=== PATIENT | male | born 1970 | race Caucasian/White ===

== ENCOUNTER 2016-08-07 19:21 | Emergency (ER) | payer SELFPAY ==
--- NOTE | ~2016-08-07 | CR63 ---
[facility] A Service of [facility] RADIOLOGY TEXT RESULTS PATIENT: PRIMO PEÑA III LOCATION: [place] : 71 UNIT #: [id number] AGE: [address]: JIN BECKFORD SEX: M ORDER DR: [id number] [facility] [address] [place], [place] [address] [id number] E MR#: [id number] #: [id number] NAME: PRIMO PEÑA III : 1970 SEX: M STUDY DATE/TIME: 08/07/2016 20:08 UNIT: [facility] ROOM: STUDY DESCRIPTION: CR Chest 2 View Attending Physician: Jin Beckford Aprn Referring Physician: Primary Care Physician No Ordering Physician: Jin Beckford Aprn Primary Care Physician: No Primary Care Physician MEDICAL IMAGING REPORT This report is preliminary unless electronic signature is present EXAM Two view chest x-ray, 08/07/2016. HISTORY A 46-year-old male in the ED with right-side chest pain after injury. Fell off a ladder today. TECHNIQUE PA and lateral upright chest series. FINDINGS The lungs are expanded and clear. No visible pneumothorax, pulmonary infiltrate or pleural effusion. Cardiomediastinal silhouette is normal. Nondisplaced fractures through the lateral portions of the right ninth and tenth ribs. No additional rib abnormality is visible on these chest images. IMPRESSION 1. Acute nondisplaced fractures through the lateral portions of the right ninth and tenth ribs. 2. No pneumothorax, pulmonary infiltrate or pleural effusion. Dictated by... Lico Oviedo M.D. THIS IS AN ELECTRONICALLY VERIFIED REPORT Lico Oviedo M.D. at 08/10/2016 5:59 AM DIYA/rashid TD: 08/08/2016 15:50 [facility] A Service of [facility] RADIOLOGY TEXT RESULTS PATIENT: PRIMO PEÑA III LOCATION: [place] : 71 UNIT #: [id number] AGE: [address]: JIN BECKFORD SEX: M ORDER DR: JOB #: [id number] MEDICAL IMAGING REPORT Page 1 of 1 COPY
[~2016-08-07 19:21] MED LIST: AUGMENTIN PO; LOPRESSOR PO; VICODIN 5/1 TAB 5/50 PO
[2016-08-07 20:08] LABS: URINE SOURCE CLEAN CATCH
[2016-08-07 20:26] LABS: URINE APPEARANCE CLEAR; URINE BILIRUBIN NEG (NEG); URINE BLOOD NEG (NEG); URINE COLOR YELLOW; URINE GLUCOSE NEG (NEG); URINE KETONE NEG (NEG); URINE LEUKOCYTE ESTERASE NEG (NEG); URINE NITRATE NEG (NEG); URINE PROTEIN NEG (NEG); URINE SPECIFIC GRAVITY 1.019 (1.003-1.035)
[2016-08-07 20:35] LABS: CULTURE INDICATED? NO
== END 2016-08-07 21:30 | disposition home or self-care (01) ==
LOC: CFTX 19:21
PROVIDERS: Nurse Practitioner Family
DX: S22.41XA Multiple fractures of ribs, right side, initial encounter for closed fracture (principal); F17.210 Nicotine dependence, cigarettes, uncomplicated; W11.XXXA Fall on and from ladder, initial encounter; Y92.9 Unspecified place or not applicable
CPT/HCPCS: 71020; 81003; 94010; 96372; 99284; J1885